=== PATIENT | female | born 1965 | race Caucasian/White ===

== ENCOUNTER → 2016-03-24 | Outpatient (CLI) | payer BC ==
[2016-03-24 13:33] LABS: ESTIMATED AVERAGE GLUCOSE 111 mg/dl; HA1C FLAG Normal (Normal)
[2016-03-24 13:48] LABS: THYROID STIMULATING HORMONE 3.43 uIu/ml (0.300-4.500)
== END | disposition home or self-care (01) ==
LOC: C.LABMFLN 10:19
PROVIDERS: ATTEND Family Medicine
DX: H53.2 Diplopia (principal)